=== PATIENT | female | born 1975 | race Caucasian/White ===

== ENCOUNTER 2016-12-29 23:13 | Emergency (ER) | payer SELFPAY ==
[2016-12-29 23:26] VITALS: BP 135/93
[2016-12-30] MEDS ORDERED: Diphtheria,Pertussis(Acell),Tetanus Vaccine 0.5 ML SDV IM ONE (00:13)
--- NOTE | 2016-12-30 00:17 | EDM.PDOC ---
ED HPI GENERAL MEDICAL PROBLEM - General Chief Complaint: Laceration Stated Complaint: RIGHT MIDDLE FINGER CUT Time Seen by Provider: 12/29/16 23:26 Source of Information: Reports: Patient, RN Notes Reviewed History Limitations: Reports: No Limitations - History of Present Illness INITIAL COMMENTS - FREE TEXT/NARRATIVE: The patient states that she was compressing the trash with her right hand, when she cut her right middle finger with something sharp in the trash. She presents with a laceration to the ulnar aspect of her distal phalanx. She states that the wound bled for about 2 hours, although has since stopped. The patient does not recall when her last tetanus vaccination was. The patient does not have a PCP. - Related Data Allergies Allergy/AdvReac Type Severity Reaction Status Date / Time aspirin Allergy Nausea and Verified 12/29/16 23:27 Vomiting codeine Allergy Nausea and Verified 12/29/16 23:27 Vomiting lemon Allergy Anaphylactic Verified 12/29/16 23:27 Shock Past Medical History Genitourinary History: Reports: Renal Calculus Musculoskeletal History: Reports: Arthritis Neurological History: Reports: Headaches, Chronic - Past Surgical History HEENT Surgical History: Reports: Oral Surgery ([place] teeth extraction), Tonsillectomy Female Surgical History: Reports: Oophorectomy (left), Tubal Ligation Social & Family History - Family History Family Medical History: Noncontributory - Tobacco Use Smoking Status *Q: Current Some Day Smoker - Alcohol Use Alcohol Use History: Yes Days Per Week of Alcohol Use: 1 Number of Drinks Per Day: 4 Total Drinks Per Week: 4 Alcohol Use Frequency: Socially - Recreational Drug Use Recreational Drug Use: No - Living Situation & Occupation Living situation: Reports: , with Spouse, with Family (3 kids) Occupation: Unemployed ED ROS GENERAL - Review of Systems Review Of Systems: See Below Constitutional: Reports: No Symptoms HEENT: Reports: No Symptoms Respiratory: Reports: No Symptoms Cardiovascular: Reports: No Symptoms Endocrine: Reports: No Symptoms GI/Abdominal: Reports: No Symptoms : Reports: No Symptoms Musculoskeletal: Reports: No Symptoms Skin: Reports: No Symptoms Neurological: Reports: No Symptoms Psychiatric: Reports: No Symptoms Hematologic/Lymphatic: Reports: No Symptoms Immunologic: Reports: No Symptoms ED EXAM, SKIN/RASH Exam: See Below Exam Limited By: No Limitations General Appearance: Alert, WD/WN, No Apparent Distress Extremities: Other (There is an approximately 1.5 cm "L"-shaped laceration to the ulnar aspect of the distal phalanx of the right third finger, lateral to the nail. The wound appears to be clean, and is not currently bleeding. Neurovascular status of the finger is intact.) ED SKIN PROCEDURES - Laceration/Wound Repair Right Finger Lac/Wound length In cm: 1.5 Appearance: Subcutaneous, Irregular, Clean Distal NVT: Neuro & Vascular Intact, No Tendon Injury Skin Prep: Saline Exploration/Debridement/Repair: Wound Explored, In a Bloodless Field, Explored to Base, No Foreign Material Found, Wound Margins Revised Closed with: Dermabond Sterile Dressing Applied: None Tetanus Status Addressed: Yes Complications: No Course - Vital Signs Last Recorded V/S: Last Vital Signs Temp 36.0 C 12/29/16 23:23 Pulse 118 H 12/29/16 23:23 Resp 16 12/29/16 23:23 BP 135/93 H 12/29/16 23:23 Pulse Ox 95 12/29/16 23:23 - Orders/Labs/Meds Orders: Active Orders 24 hr Category Date Time Status Vaccines to be Administered [RC] PER UNIT ROUTINE Care 12/30/16 00:13 Active Meds: Medications Discontinued Medications Generic Name Dose Route Start Last Admin Trade Name Freq PRN Reason Stop Dose Admin Diphtheria/Tetanus/Acell Pertussis 0.5 ml 12/30/16 00:13 12/30/16 00:23 Adacel IM 12/30/16 00:14 0.5 ml .ONCE ONE Administration - Re-Assessments/Exams Free Text/Narrative Re-Assessment/Exam: 12/30/16 00:13 After soaking in saline, the wound stopped bleeding on its own. The wound was then closed with Dermabond. The patient will receive a tetanus vaccination prior to discharge. Departure - Departure Time of Disposition: 00:13 Disposition: Home, Self-Care 01 Condition: Good Clinical Impression: Laceration of middle finger of right hand without complication - Discharge Information Instructions: Laceration Care, Adult Referrals: PCP,None [Primary Care Provider] - Forms: ED Department Discharge Additional Instructions: You were seen in the emergency room after cutting your right middle finger. Your wound was closed with Dermabond. You were given a tetanus vaccination. We recommend you do not put a dressing over the Dermabond tonight, however, starting tomorrow, after bathing, we recommend that you apply a Band-Aid each day. Do not pick at the glue - allow it to flake off on its own. Take [id number] Tylenol or ibuprofen as needed for discomfort. If any other problems, please do not hesitate to return to the ER. - My Orders Last 24 Hours: My Active Orders 12/30/16 00:13 Vaccines to be Administered [RC] PER UNIT ROUTINE - Assessment/Plan Last 24 Hours: My Active Orders 12/30/16 00:13 Vaccines to be Administered [RC] PER UNIT ROUTINE
== END 2016-12-30 00:25 | disposition home or self-care (01) ==
LOC: JD.ED 23:13
DX: S61.212A Laceration without foreign body of right middle finger without damage to nail, initial encounter (principal); F17.200 Nicotine dependence, unspecified, uncomplicated; Z23 Encounter for immunization; Z88.6 Allergy status to analgesic agent; Z88.5 Allergy status to narcotic agent; Z91.018 Allergy to other foods; W26.9XXA Contact with unspecified sharp object(s), initial encounter
CPT/HCPCS: 12001; 90471; 90715; 99282-25; 99283-25

== ENCOUNTER 2017-03-14 18:55 | Emergency (ER) | payer BC ==
[2017-03-14 19:29] VITALS: BP 149/103
--- NOTE | 2017-03-14 20:08 | EDM.PDOC ---
ED HPI GENERAL MEDICAL PROBLEM - General Chief Complaint: Upper Extremity Injury/Pain Stated Complaint: FELL & INJURED R SHOULDER Time Seen by Provider: 03/14/17 19:55 Source of Information: Reports: Patient History Limitations: Reports: No Limitations - History of Present Illness INITIAL COMMENTS - FREE TEXT/NARRATIVE: 41-year-old female presents the ED for evaluation of right shoulder pain. She reports on the early hours of March 12 she slipped while getting out of her vehicle landing directly on her right shoulder and right hip. She did not hit her head or lose consciousness. Since time of injury she has had increasing pain in the proximal shoulder and humerus area with inability to afford flex or abduct completely. She is right-hand dominant. Pain is worsened since time of injury. She also had a contusion to her right buttock and hip area but she did not wish this to be examined today. She is walking with a minimal limp. 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 Denies: Activity (Has limited mobility particularly abduction or forward flexion ), Exercise, Lifting, Sick Contact Associated Symptoms: Reports: Other (Contusion right hip and buttock area.) Treatments CLINICAL DIRECTOR: Reports: Acetaminophen, NSAIDS (Motrin.) Right Shoulder Pain Score (Numeric/FACES): 10 - Related Data Allergies Allergy/AdvReac Type Severity Reaction Status Date / Time aspirin Allergy Nausea and Verified 12/29/16 23:27 Vomiting codeine Allergy Nausea and Verified 12/29/16 23:27 Vomiting lemon Allergy Anaphylactic Verified 12/29/16 23:27 Shock Home Meds: Home Meds . [No Known Home Meds] 03/14/17 [History] Past Medical History - Past Health History Medical/Surgical History: Denies Medical/Surgical History Genitourinary History: Reports: Renal Calculus Musculoskeletal History: Reports: Arthritis Neurological History: Reports: Headaches, Chronic - Past Surgical History HEENT Surgical History: Reports: Oral Surgery, Tonsillectomy Female Surgical History: Reports: Oophorectomy, Tubal Ligation Social & Family History - Family History Family Medical History: Noncontributory - Tobacco Use Smoking Status *Q: Current Every Day Smoker Years of Tobacco use: 15 Packs/Tins Daily: 0.2 Used Tobacco, but Quit: Yes Month Tobacco Last Used: 2006 - Caffeine Use Caffeine Use: Reports: Coffee, Energy Drinks, Soda, Tea - Alcohol Use Days Per Week of Alcohol Use: 1 Number of Drinks Per Day: 4 Total Drinks Per Week: 4 - Recreational Drug Use Recreational Drug Use: No - Living Situation & Occupation Living situation: Reports: , with Spouse, with Family (3 kids) Occupation: Unemployed Review of Systems - Review of Systems Review Of Systems: See Below Constitutional: Denies: Chills, Diaphoresis, Weakness, Other Eyes: Reports: No Symptoms Ears: Reports: No Symptoms Nose: Reports: No Symptoms Mouth/Throat: Reports: No Symptoms Respiratory: Reports: No Symptoms Cardiovascular: Reports: No Symptoms GI/Abdominal: Reports: No Symptoms Genitourinary: Reports: No Symptoms Musculoskeletal: Reports: Shoulder Pain, Arm Pain (See history of present illness the history of present illness right side.), Other (Right hip/ buttock pain.) Skin: Reports: No Symptoms Neurological: Reports: No Symptoms Psychiatric: Reports: No Symptoms ED EXAM, GENERAL - Physical Exam Exam: See Below Exam Limited By: No Limitations General Appearance: Alert, WD/WN, Mild Distress Eye Exam: Bilateral Eye: Normal Inspection Neck: Normal Inspection, Supple, Non-Tender, Full Range of Motion. No: Lymphadenopathy (L), Lymphadenopathy (R) Respiratory/Chest: No Respiratory Distress, Lungs Clear, No Accessory Muscle Use , Other Cardiovascular: Normal Peripheral Pulses, Regular Rate, Rhythm, No Edema, No Gallop, No Murmur (No rib or sternal pain.) Extremities: Other (Examination of the right shoulder shows a hematoma over the deltoid muscle and pain over the proximal humerus. She has very limited forward flexion can make it almost to 90 as well as abduction to about 90 with significant pain. Pain over the before meals joint and distal clavicle also appreciated without any obvious bruising or hematoma formation.) Neurological: Alert, Oriented, CN II-XII Intact, Normal Cognition, Other Psychiatric: Normal Affect (Limping gait due to contusion to right hip.), Normal Mood Skin Exam: Warm, Dry, Intact, Normal Color, No Rash Course - Vital Signs Last Recorded V/S: Last Vital Signs Temp 36.2 C 03/14/17 19:28 Pulse 102 H 03/14/17 19:28 Resp 20 03/14/17 19:28 BP 149/103 H 03/14/17 19:28 Pulse Ox 96 03/14/17 19:28 - Orders/Labs/Meds Orders: Active Orders 24 hr Category Date Time Status Humerus Rt [CR] Stat Exams 03/14/17 20:03 Taken Shoulder Comp Rt [CR] Stat Exams 03/14/17 20:04 Taken - Radiology Interpretation Free Text/Narrative:: 41-year-old female presents the ED for evaluation of right shoulder pain. This occurred after she slipped and fell getting out of her vehicle in the wee hours of March 12. With direct blow on the right shoulder. Also contused her right hip and buttock area. Since the time of injury she has very limited range of motion in terms of for flexion or abduction of the shoulder. Pain proximal humerus area. Also pain on before meals joint and distal clavicle on examination. Plan x-ray of the shoulder and humerus to be done. - Re-Assessments/Exams Free Text/Narrative Re-Assessment/Exam: 03/14/17 20:36 x-rays of the right humerus are within normal limits. No fractures identified. X-rays of the right shoulder slight shift slow slight widening of the acromioclavicular joint. Alignment is normal however. This may represent a low-grade strain of the acromio-clavicular joint. Treatment is conservative. May apply heat to the area now one half hour out of every 4 hours. Continue ibuprofen 600 mg every 6 hours or Aleve 2 tablets every 8 hours to relieve pain and inflammation. Just right arm sling for the next 2-3 days until swelling and bruising in the deltoid muscle starts to resolve. Suggest follow-up with your personal care physician in 10 days' time if you are not completely back to normal in terms of range of motion of your shoulder. Expect about 14 days to get back to normal. 03/14/17 20:46 due to limited rate range of motion decision made to place her in a sling to support her right arm for the next 3 days until swelling goes down in the deltoid and she begins active range of motion exercises again. Advise follow-up with her personal care physician in 10-14 days time. Departure - Departure Time of Disposition: 20:47 Disposition: Home, Self-Care 01 Condition: Fair Clinical Impression: Contusion of right shoulder Qualifiers: Encounter type: initial encounter Qualified Code(s): S40.011A - Contusion of right shoulder, initial encounter Strain of acromioclavicular joint Qualifiers: Encounter type: initial encounter Laterality: right Qualified Code(s): S46.911A - Strain of unspecified muscle, fascia and tendon at shoulder and upper arm level, right arm, initial encounter - Discharge Information Referrals: PCP,None [Primary Care Provider] - Forms: ED Department Discharge Additional Instructions: Evaluation the emergency room today in regards to recent slip and fall with direct blow to her right shoulder. This is resulted in contusion to the right shoulder with hematoma palpable in the deltoid muscle of the upper arm. X-rays of the upper arm and the shoulder do not reveal any broken bones. I suspect there is a grade 1 strain of the acromioclavicular joint as is slightly widened on x-ray. Us injury will heal on its own over the next 10-14 days. Suggest heat to the area one half hour out of every 4 hours to relieve pain and help the blood in the muscle reabsorb. Suggest right arm sling for the next 3 days until the pain and swelling starts to dissipate. Follow-up with personal physician if you're not completely back to normal in 14 days time. - My Orders Last 24 Hours: My Active Orders 03/14/17 20:03 Humerus Rt [CR] Stat 03/14/17 20:04 Shoulder Comp Rt [CR] Stat - Assessment/Plan Last 24 Hours: My Active Orders 03/14/17 20:03 Humerus Rt [CR] Stat 03/14/17 20:04 Shoulder Comp Rt [CR] Stat
--- NOTE | 2017-03-15 10:57 | CR ---
Right shoulder: Three views of the right shoulder were obtained. Comparison: No prior study. Glenohumeral joint and acromioclavicular joint appear unremarkable. No fracture or other bony abnormality is seen. Impression: 1. No abnormality is identified on three-view right shoulder study. Diagnostic code #1
--- NOTE | 2017-03-15 10:57 | CR ---
Right humerus: Two views of the right humerus were obtained. Comparison: No previous study. No fracture or other abnormality is seen. Impression: 1. No abnormality is identified on two-view right humerus study. Diagnostic code #1
== END 2017-03-14 21:15 | disposition home or self-care (01) ==
LOC: JD.ED 18:55
DX: S46.911A Strain of unspecified muscle, fascia and tendon at shoulder and upper arm level, right arm, initial encounter (principal); S40.011A Contusion of right shoulder, initial encounter; W01.198A Fall on same level from slipping, tripping and stumbling with subsequent striking against other object, initial encounter; F17.210 Nicotine dependence, cigarettes, uncomplicated; Z88.5 Allergy status to narcotic agent; Z88.6 Allergy status to analgesic agent; Z91.018 Allergy to other foods
CPT/HCPCS: 73030-26-RT; 73030-RT; 73060-26-RT; 73060-RT; 99283

== ENCOUNTER 2017-10-31 20:10 | Emergency (ER) | payer BC ==
[2017-10-31 20:20] VITALS: BP 142/117
[2017-10-31] MEDS ORDERED: Acetaminophen/HYDROcodone 325-5 MG Tab PO ONE (20:50)
--- NOTE | 2017-10-31 20:53 | EDM.PDOC ---
ED HPI GENERAL MEDICAL PROBLEM - General Chief Complaint: Lower Extremity Injury/Pain Stated Complaint: LEFT ANKLE INJURY Time Seen by Provider: 10/31/17 20:31 Source of Information: Reports: Patient History Limitations: Reports: No Limitations - History of Present Illness INITIAL COMMENTS - FREE TEXT/NARRATIVE: Patient is a 42-year-old female presents ED complaining of left lateral ankle pain. Patient was home and stepped on a partially cooked hamburger twisting her ankle. Patient felt a pop and was unable to weight-bear thereafter. Swollen and pain is located to the lateral aspect of the ankle. No sensory changes distally. No pain proximally along the fibula. No other complaints. Left Ankle Pain Score (Numeric/FACES): 10 - Related Data Allergies Allergy/AdvReac Type Severity Reaction Status Date / Time aspirin Allergy Nausea and Verified 10/31/17 20:17 Vomiting codeine Allergy Nausea and Verified 10/31/17 20:17 Vomiting lemon Allergy Anaphylactic Verified 10/31/17 20:17 Shock Home Meds: Home Meds . [No Known Home Meds] 03/14/17 [History] Past Medical History - Past Health History Medical/Surgical History: Denies Medical/Surgical History Genitourinary History: Reports: Renal Calculus [employer] History: Reports: Musculoskeletal History: Reports: Arthritis Neurological History: Reports: Headaches, Chronic - Past Surgical History HEENT Surgical History: Reports: Oral Surgery, Tonsillectomy Female Surgical History: Reports: Oophorectomy, Tubal Ligation Social & Family History - Family History Family Medical History: Noncontributory - Tobacco Use Smoking Status *Q: Never Smoker - Caffeine Use Caffeine Use: Reports: Coffee, Energy Drinks, Soda, Tea - Recreational Drug Use Recreational Drug Use: No - Living Situation & Occupation Living situation: Reports: , with Spouse, with Family (3 kids) Occupation: Unemployed Review of Systems - Review of Systems Review Of Systems: ROS reveals no pertinent complaints other than HPI. ED EXAM, GENERAL - Physical Exam Exam: See Below Exam Limited By: No Limitations General Appearance: Alert, WD/WN, No Apparent Distress Ears: Hearing Grossly Normal Nose: Normal Inspection Throat/Mouth: Normal Voice, No Airway Compromise Neck: Normal Inspection, Supple Respiratory/Chest: No Respiratory Distress, No Accessory Muscle Use Cardiovascular: Normal Peripheral Pulses, Regular Rate, Rhythm Peripheral Pulses: 2+: Posterior Tibial (L) Extremities: Other (Swelling noted to the left lateral ankle with increasing pain on palpation. Limited range of motion secondary to pain. No pain noted to the medial aspect of the ankle. No pain along the metatarsals. No sensory deficits noted. No pain with palpation of the proximal fibula. No pain with palpation of the tibia.) Neurological: Alert, Oriented, CN II-XII Intact, Normal Cognition, No Motor/ Sensory Deficits Psychiatric: Normal Affect, Normal Mood Skin Exam: Warm, Dry, Intact, Normal Color Course - Vital Signs Last Recorded V/S: Last Vital Signs Temp 97.4 F 10/31/17 20:17 Pulse 110 H 10/31/17 20:17 Resp 18 10/31/17 20:17 BP 142/117 H 10/31/17 20:17 Pulse Ox 97 10/31/17 20:17 - Orders/Labs/Meds Orders: Active Orders 24 hr Category Date Time Status Ankle Min 3V Lt [CR] Stat Exams 10/31/17 20:50 Taken Meds: Medications Discontinued Medications Generic Name Dose Route Start Last Admin Trade Name Katherine PRN Reason Stop Dose Admin Hydrocodone Bitart/Acetaminophen 1 tab 10/31/17 20:50 10/31/17 21:00 [place] 325-5 Mg PO 10/31/17 20:51 1 tab ONETIME ONE Administration - Re-Assessments/Exams Free Text/Narrative Re-Assessment/Exam: Ordered x-ray of the left ankle and norco 1 tab by mouth. X-ray of the ankle: Reviewed with Dr. Jones with no acute bony abnormalities noted. Final interpretation is pending. Discharge instructions as documented for left ankle sprain. Crutches and stirrup splint applied. Departure - Departure Time of Disposition: 20:53 Disposition: Home, Self-Care 01 Clinical Impression: Ankle sprain Qualifiers: Encounter type: initial encounter Involved ligament of ankle: unspecified ligament Laterality: left Qualified Code(s): S93.402A - Sprain of unspecified ligament of left ankle, initial encounter - Discharge Information Instructions: Crutch Use, Adult, [id number], How to Use a Stirrup Ankle Brace , Ankle Sprain Referrals: PCP,None [Primary Care Provider] - Forms: ED Department Discharge - My Orders Last 24 Hours: My Active Orders 10/31/17 20:50 Ankle Min 3V Lt [CR] Stat - Assessment/Plan Last 24 Hours: My Active Orders 10/31/17 20:50 Ankle Min 3V Lt [CR] Stat
--- NOTE | 2017-11-05 07:30 | CR ---
Left ankle: Four views of the left ankle were obtained. Comparison: No previous study. Ankle mortise is symmetric. No fracture, dislocation or other bony abnormality is seen. Impression: 1. No abnormality is identified on left ankle exam. Diagnostic code #1
== END 2017-10-31 22:15 | disposition home or self-care (01) ==
LOC: JD.ED 20:10
DX: S93.402A Sprain of unspecified ligament of left ankle, initial encounter (principal); Z88.5 Allergy status to narcotic agent; X50.1XXA Overexertion from prolonged static or awkward postures, initial encounter
CPT/HCPCS: 73610; 99283; A9270

== ENCOUNTER 2017-12-14 17:24 | Emergency (ER) | payer BC ==
[2017-12-14 17:32] VITALS: BP 143/104
[2017-12-14] MEDS ORDERED: Ketorolac 60 MG/2 ML SDV IM ONE (17:33)
--- NOTE | 2017-12-14 17:40 | EDM.PDOC ---
ED HPI GENERAL MEDICAL PROBLEM - General Chief Complaint: Lower Extremity Injury/Pain Stated Complaint: LT ANKLE INJURY Time Seen by Provider: 12/14/17 17:27 - History of Present Illness INITIAL COMMENTS - FREE TEXT/NARRATIVE: Patient is 42-year-old female accompanied by daughter presented today to the emergency department for evaluation of left ankle injury happened approximately half hour prior to arrival. She stated that when she was picking up people from the bar, she accidentally twisted and injured her left ankle. Certainly after the injury, she developed diffuse swelling around her ankle and she has been complaining of pain and unable to fully weight-bearing. Currently she rated her pain level about 8 or 9 on a scale of 0-10. She denies any medication use to alleviate pain prior to arrival. She did admit that he had a injury to the similar ankle which she had sprained couple months ago but denies any fracture. She denies any associated symptoms of numbness or weakness to the left foot, pain to her left knee. Denies any other concerns at this time. Left Ankle Pain Score (Numeric/FACES): 8 - Related Data Allergies Allergy/AdvReac Type Severity Reaction Status Date / Time aspirin Allergy Nausea and Verified 12/14/17 17:33 Vomiting codeine Allergy Nausea and Verified 12/14/17 17:33 Vomiting lemon Allergy Anaphylactic Verified 12/14/17 17:33 Shock Home Meds: Home Meds . 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: Musculoskeletal History: Reports: Arthritis Neurological History: Reports: Headaches, Chronic - Past Surgical History HEENT Surgical History: Reports: Oral Surgery, Tonsillectomy Female Surgical History: Reports: Oophorectomy, Tubal Ligation Social & Family History - Family History Family Medical History: Noncontributory - Tobacco Use Smoking Status *Q: Current Some Day Smoker Years of Tobacco use: 20 Packs/Tins Daily: 0.1 - Caffeine Use Caffeine Use: Reports: Coffee, Soda - Recreational Drug Use Recreational Drug Use: No - Living Situation & Occupation Living situation: Reports: , with Spouse, with Family (3 kids) Occupation: Unemployed Review of Systems - Review of Systems Review Of Systems: ROS reveals no pertinent complaints other than HPI. ED EXAM, GENERAL - Physical Exam Exam: See Below Exam Limited By: No Limitations General Appearance: Alert, WD/WN, No Apparent Distress Respiratory/Chest: No Respiratory Distress, Lungs Clear, Normal Breath Sounds Cardiovascular: Normal Peripheral Pulses, Regular Rate, Rhythm Peripheral Pulses: 2+: Posterior Tibial (L), Dorsalis Pedis (L) Back Exam: Normal Inspection, Full Range of Motion, NT Extremities: Normal Inspection, Normal Range of Motion, Normal Capillary Refill , Other (Left ankle/foot: There is no ecchymosis, crepitus. Diffuse swelling and tenderness to palpation over the bony prominence of malleolus. No erythema or warmth.Distal motor and neurovascular status intact.) Neurological: Alert, Oriented, No Motor/Sensory Deficits Psychiatric: Normal Affect, Normal Mood Skin Exam: Warm, Dry, Intact, Normal Color, No Rash Course - Vital Signs Last Recorded V/S: Last Vital Signs Temp 35.7 C 12/14/17 17:29 Pulse 110 H 12/14/17 17:29 Resp 16 12/14/17 17:29 BP 143/104 H 12/14/17 17:29 Pulse Ox 98 12/14/17 17:29 - Orders/Labs/Meds Orders: Active Orders 24 hr Category Date Time Status Ankle 2V Lt [CR] Stat Exams 12/14/17 17:32 Taken Foot 2V Lt [CR] Stat Exams 12/14/17 17:32 Taken Meds: Medications Discontinued Medications Generic Name Dose Route Start Last Admin Trade Name Texq PRN Reason Stop Dose Admin Ketorolac Tromethamine 60 mg 12/14/17 17:33 12/14/17 17:38 Toradol IM 12/14/17 17:34 60 mg ONETIME ONE Administration - Re-Assessments/Exams Free Text/Narrative Re-Assessment/Exam: 12/14/17 18:05 This time patient reevaluated at bedside.Patient was given ice pack to the left ankle and elevated that extremity, in conjunction with intramuscular Toradol injection which helped her alleviated somewhat of her discomfort. Currently she rated her discomfort level about 2-3 on a scale of 0-10. In the emergency department, will provide Noe wrap to the left ankle. She stated that she does have a crutches at home which she will use. I advised her to keep her left lower extremity elevated while resting, Noe wrap , icing, and use of NSAID as needed for pain control. Her to follow-up with orthopedic surgery, as mentioned in the discharge instruction within 5-7 days to reevaluate of ankle injury. She verbalized understanding of the given instructions and agrees to comply. Departure - Departure Time of Disposition: 18:12 Disposition: Home, Self-Care 01 Condition: Good Clinical Impression: Left ankle sprain - Discharge Information *PRESCRIPTION DRUG MONITORING PROGRAM REVIEWED*: Not Applicable *COPY OF PRESCRIPTION DRUG MONITORING REPORT IN PATIENT TALIB: Not Applicable Instructions: Ankle Sprain, [id number] Referrals: PCP,None [Primary Care Provider] - 3 Days (Please establish care with primary care provider) Darian Wesley MD [Physician] - 1 Week (Outpatient orthopedic surgery referral and follow-up and reevaluation of today emergency visit LEFT ankle sprain within 5-7 days) Forms: ED Department Discharge - My Orders Last 24 Hours: My Active Orders 12/14/17 17:32 Ankle 2V Lt [CR] Stat Foot 2V Lt [CR] Stat - Assessment/Plan Last 24 Hours: My Active Orders 12/14/17 17:32 Ankle 2V Lt [CR] Stat Foot 2V Lt [CR] Stat
--- NOTE | 2017-12-17 08:19 | CR ---
Left ankle: Two views of the left ankle were obtained. Comparison: No prior ankle study. Soft tissue swelling is identified. Ankle mortise is symmetric. No discrete bony abnormality is seen on this two-view study. Impression: 1. Soft tissue swelling. No bony abnormality is appreciated. Diagnostic code #2
--- NOTE | 2017-12-17 08:46 | CR ---
Left foot: Two views of the left foot were obtained. Comparison: No prior left foot exam. Joint spaces are preserved. No fracture or other bony abnormality is seen. No soft tissue radiopaque foreign body is appreciated. Impression: 1. No abnormality is appreciated on two-view left foot exam. Diagnostic code #1
== END 2017-12-14 18:15 | disposition home or self-care (01) ==
LOC: JD.ED 17:24
DX: S93.402A Sprain of unspecified ligament of left ankle, initial encounter (principal); F17.210 Nicotine dependence, cigarettes, uncomplicated; Z88.8 Allergy status to other drugs, medicaments and biological substances; X50.9XXA Other and unspecified overexertion or strenuous movements or postures, initial encounter
CPT/HCPCS: 73600; 73620; 96372; 99283; J1885

== ENCOUNTER 2018-03-30 20:41 | Emergency (ER) | payer SELFPAY ==
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
[2018-03-30] MEDS ORDERED: Ibuprofen 400 MG Tab PO STA (22:25)
[2018-03-30 22:50] VITALS: BP 137/86
== END 2018-03-30 22:45 | disposition home or self-care (01) ==
LOC: JD.ED 20:41
DX: F43.0 Acute stress reaction (principal); F17.210 Nicotine dependence, cigarettes, uncomplicated; Z88.5 Allergy status to narcotic agent; Z88.8 Allergy status to other drugs, medicaments and biological substances; Z91.018 Allergy to other foods
CPT/HCPCS: 36415; 80053; 80306; 81001; 84703; 85025; 99283; A9270

== ENCOUNTER 2018-08-22 10:34 | Emergency (ER) | payer SELFPAY ==
[2018-08-22] MEDS ORDERED: Sodium Chloride 0.9% 10 ML Syringe FLUSH PRN (11:56)
[2018-08-22] MEDS: Ondansetron 4 MG/2 ML SDV IVPUSH ONE (12:15)
[2018-08-22] MEDS: HYDROmorphone 0.5 MG/0.5 ML Syringe IVPUSH ONE (12:17)
[2018-08-22] MEDS: Lidocaine 1% 30 ML SDV INJECT STA (12:30)
--- NOTE | 2018-08-22 12:37 | EDM.PDOC ---
ED HPI GENERAL MEDICAL PROBLEM - General Chief Complaint: Skin Complaint Stated Complaint: SKIN COMPLAINT Time Seen by Provider: 08/22/18 11:00 Source of Information: Reports: Patient History Limitations: Reports: No Limitations - History of Present Illness INITIAL COMMENTS - FREE TEXT/NARRATIVE: 43-year-old female presents for evaluation and treatment of an abscess to the right axilla. Patient reports she's had this for approximately 3 days. States his very tender to touch. She has attempted to squeeze and express material from above has been unsuccessful. She states it is very tender to touch, warm and red. She reports associated symptoms of nausea, subjective fever, chills and a decreased appetite. She has had these in the past. No history of diabetes. No primary care provider. Duration: Day(s): (3) Location: Reports: Upper Extremity, Right Right Arm Pain Score (Numeric/FACES): 5 - Related Data Allergies Allergy/AdvReac Type Severity Reaction Status Date / Time aspirin Allergy Nausea and Verified 08/22/18 11:01 Vomiting codeine Allergy Nausea and Verified 08/22/18 11:01 Vomiting lemon Allergy Anaphylactic Verified 08/22/18 11:01 Shock Home Meds: Home Meds Ondansetron [Zofran ODT] 4 mg PO Q6H PRN #15 tab.dis 08/22/18 [Rx] Sulfamethoxazole/Trimethoprim [Bactrim Ds Tablet] 1 each PO BID #20 tablet 08/22 [Rx] traMADol [Ultram] 50 mg PO Q6H PRN #15 tab 08/22/18 [Rx] Past Medical History - Past Health History Medical/Surgical History: Denies Medical/Surgical History Genitourinary History: Reports: Renal Calculus 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: Musculoskeletal History: Reports: Arthritis Neurological History: Reports: Headaches, Chronic - Past Surgical History HEENT Surgical History: Reports: Oral Surgery, Tonsillectomy Female Surgical History: Reports: Oophorectomy, Tubal Ligation Social & Family History - Family History Family Medical History: Noncontributory - Tobacco Use Smoking Status *Q: Never Smoker - Caffeine Use Caffeine Use: Reports: None - Living Situation & Occupation Living situation: Reports: , with Spouse, with Family (3 kids) Occupation: Unemployed ED ROS GENERAL - Review of Systems Review Of Systems: See Below Constitutional: Reports: Fever (subjective), Chills, Decreased Appetite GI/Abdominal: Reports: Nausea. Denies: Vomiting Skin: Reports: Lumps (right axilla, denies any purulent drainage. Very tender to palpation.) ED EXAM, SKIN/RASH Exam: See Below Exam Limited By: No Limitations General Appearance: Alert, WD/WN, Mild Distress, Obese Respiratory/Chest: No Respiratory Distress, Lungs Clear, Normal Breath Sounds Cardiovascular: Normal Peripheral Pulses, Regular Rate, Rhythm, No Murmur Neurological: Alert, Oriented, Normal Cognition Psychiatric: Normal Affect, Normal Mood Skin: Warm, Dry, Normal Color. No: Erythema Location, Skin: Upper Extremity, Right (lumbar, cellular picture than a golf ball, appreciated the right axilla. No purulent drainage. Minimal overlying erythema. Very tender to palpation.) Course - Vital Signs Last Recorded V/S: Last Vital Signs Temp 98.1 F 08/22/18 13:37 Pulse 90 08/22/18 13:37 Resp 16 08/22/18 13:37 BP Pulse Ox 97 08/22/18 13:37 - Orders/Labs/Meds Orders: Active Orders 24 hr Category Date Time Status Peripheral IV Care [RC] . DIRECTED Care 08/22/18 11:56 Active CULTURE ANAEROBIC + SMEAR [RM] Stat Lab 08/22/18 12:24 Received Peripheral IV Insertion Adult [OM.PC] Routine Oth 08/22/18 11:56 Ordered Meds: Medications Discontinued Medications Generic Name Dose Route Start Last Admin Trade Name Katherine PRN Reason Stop Dose Admin Bupivacaine HCl Confirm 08/22/18 12:08 08/22/18 13:21 Sensorcaine-Mpf 0.5% Administered 08/22/18 12:09 Not Given Dose 10 ml .ROUTE .STK-MED ONE Hydromorphone HCl 0.5 mg 08/22/18 11:56 08/22/18 12:17 Dilaudid IVPUSH 08/22/18 11:57 0.5 mg ONETIME ONE Administration Ceftriaxone Sodium 2 gm/ 100 mls @ 200 mls/hr 08/22/18 12:46 08/22/18 13:01 Sodium Chloride IV 08/22/18 13:15 200 mls/hr NOW ONE Administration Lidocaine HCl Confirm 08/22/18 12:08 08/22/18 13:40 Xylocaine-Mpf 1% Administered 08/22/18 12:09 Not Given Dose 30 ml .ROUTE .STK-MED ONE Lidocaine HCl 30 ml 08/22/18 12:15 08/22/18 12:30 Xylocaine-Mpf 1% INJECT 08/22/18 12:16 30 ml ONETIME STA Administration Ondansetron HCl 4 mg 08/22/18 11:56 08/22/18 12:15 Zofran IVPUSH 08/22/18 11:57 4 mg ONETIME ONE Administration Sodium Chloride 10 ml 08/22/18 11:56 Saline Flush FLUSH ASDIRECTED PRN Keep Vein Open Trimethoprim/Sulfamethoxazole 1 tab 08/22/18 12:43 08/22/18 13:02 Septra Ds PO 08/22/18 12:44 1 tab ONETIME ONE Administration - Re-Assessments/Exams Free Text/Narrative Re-Assessment/Exam: 08/22/18 12:57 Dr. Clement, surgeon on-call presented to the ER and opened up the abscess. Did not express much material is felt mostly be swelling. He does feel that this is MRSA. This was packed and he recommends daily dressing changes and follow-up with him. I will give her some Rocephin here in the ED and some Bactrim and start her on a course of Bactrim. She is to follow-up in the clinic. Aerobic and anaerobic cultures are pending at this time. Discharge instructions as documented. Departure - Departure Time of Disposition: 12:59 Disposition: Home, Self-Care 01 Condition: Fair Clinical Impression: Cellulitis Qualifiers: Site of cellulitis: extremity Site of cellulitis of extremity: lower extremity Laterality: right Qualified Code(s): L03.115 - Cellulitis of right lower limb - Discharge Information *PRESCRIPTION DRUG MONITORING PROGRAM REVIEWED*: No *COPY OF PRESCRIPTION DRUG MONITORING REPORT IN PATIENT TALIB: No Prescriptions: Ondansetron [Zofran ODT] 4 mg PO Q6H PRN #15 tab.dis PRN Reason: Nausea Sulfamethoxazole/Trimethoprim [Bactrim Ds Tablet] 1 each PO BID #20 tablet traMADol [Ultram] 50 mg PO Q6H PRN #15 tab PRN Reason: Pain Instructions: Cellulitis, Adult, [id number] Referrals: PCP,None [Primary Care Provider] - Forms: ED Department Discharge Additional Instructions: You were given medication in the ER that can affect your ability to drive and operate machinery. Do not drive or operate machinery within 10 hours of taking prescription narcotic pain medication. Utilize hot packs to the area. Follow-up with Dr. Narayanan Sunday in the clinic. Call [phone] to schedule with him. Have the dressing and packing changed daily, the ER can do this for you when you are not seen in the clinic. OTC Tylenol or Motrin as needed for pain. tramadol 1 tab PO every every 6 hours prn pain. Zofran 1 tab sublingual every 6 hours prn nausea. Bactrim as prescribed. 1 tab PO bid x 10 days. Please return to the ER should your symptoms change or worsen. - My Orders Last 24 Hours: My Active Orders 08/22/18 11:56 Peripheral IV Care [RC] . DIRECTED Peripheral IV Insertion Adult [OM.PC] Routine 08/22/18 12:24 CULTURE ANAEROBIC + SMEAR [RM] Stat - Assessment/Plan Last 24 Hours: My Active Orders 08/22/18 11:56 Peripheral IV Care [RC] . DIRECTED Peripheral IV Insertion Adult [OM.PC] Routine 08/22/18 12:24 CULTURE ANAEROBIC + SMEAR [RM] Stat
[2018-08-22] MEDS: cefTRIAXone 2 GM in Sodium Chloride 0.9% 100 ML IV ONE (13:01)
[2018-08-22] MEDS: Sulfamethoxazole/Trimethoprim 800-160 MG Tab PO ONE (13:02)
[2018-08-22] MEDS: Bupivacaine 0.5% 10 ML SDV ONE (13:21)
[2018-08-22] MEDS: Lidocaine 1% 30 ML SDV ONE (13:40)
--- NOTE | 2018-08-23 08:02 | PROC ---
DATE OF OPERATION: 08/22/2018 SURGEON: Des Narayanan MD PREOPERATIVE DIAGNOSIS: Abscess, right axilla. POSTOPERATIVE DIAGNOSIS: Abscess, right axilla. OPERATION PERFORMED: Incision and drainage. ANESTHESIA: Under local anesthetic, 1% Xylocaine. INDICATIONS: The patient presented to the ER with pain and swelling in the left axilla with redness and tenderness and small drainage. I was asked by Emergency Room to drain the abscess. DESCRIPTION OF PROCEDURE: The patient after gowning and gloving and prepping the area with Betadine, 1% Xylocaine was instilled around the area. An incision was made and carried down through the skin into the subcuticular tissue. A small amount of pus was obtained, and this was cultured. Palpation of the area did not show anything, but indurated, inflamed, and infected fat and little pus. Recommendation was to pack the wound daily and warm packs and start on antibiotics directed against MRSA and follow up in my clinic in a week and daily packing in the emergency room. If not improved, return to the ER. ESTIMATED BLOOD LOSS: MMODAL /[id number]
== END 2018-08-22 13:35 | disposition home or self-care (01) ==
LOC: JD.ED 10:34
DX: L02.411 Cutaneous abscess of right axilla (principal); L03.115 Cellulitis of right lower limb; Z88.8 Allergy status to other drugs, medicaments and biological substances; Z88.5 Allergy status to narcotic agent; Z91.048 Other nonmedicinal substance allergy status
CPT/HCPCS: 10060; 10061; 87075; 87077; 87186; 87205; 96365; 96375; 99284; 99284-25; A9270-GY; J0696; J1170; J2001; J2405; J7030

== ENCOUNTER 2019-02-03 10:49 | Emergency (ER) | payer SELFPAY ==
[2019-02-03 11:09] VITALS: BP 145/101; PULSE 100
--- NOTE | 2019-02-03 11:32 | EDM.PDOC ---
ED HPI GENERAL MEDICAL PROBLEM - General Chief Complaint: Bite:Animal, Insect Stated Complaint: INSECT BITE Time Seen by Provider: 02/03/19 11:31 - History of Present Illness INITIAL COMMENTS - FREE TEXT/NARRATIVE: 43-year-old female presents emergency room after getting stung by a spider she thinks. Patient awoke this morning with the painful area on the right side of her face just in front of her ear. Patient states she has little black spiders in her house but did not actually see a spider. The patient is noticed increased discomfort and swelling in the area no drainage. The patient did try and take Benadryl 25 mg. If she takes more than that it knocks her out. The patient's last tetanus shot was in December 2016. Right Cheek Pain Score (Numeric/FACES): 8 - Related Data Allergies Allergy/AdvReac Type Severity Reaction Status Date / Time aspirin Allergy Nausea and Verified 02/03/19 11:06 Vomiting codeine Allergy Nausea and Verified 02/03/19 11:06 Vomiting lemon Allergy Anaphylactic Verified 02/03/19 11:06 Shock Home Meds: Home Meds Sulfamethoxazole/Trimethoprim [Bactrim Ds Tablet] 1 each PO Q12H #14 tablet [Rx] Past Medical History - Past Health History Medical/Surgical History: Denies Medical/Surgical History Genitourinary History: Reports: Renal Calculus [employer] History: Reports: Musculoskeletal History: Reports: Arthritis Neurological History: Reports: Headaches, Chronic - Infectious Disease History Infectious Disease History: Reports: MRSA - Past Surgical History HEENT Surgical History: Reports: Oral Surgery, Tonsillectomy Female Surgical History: Reports: Oophorectomy, Tubal Ligation Social & Family History - Family History Family Medical History: Noncontributory - Tobacco Use Smoking Status *Q: Unknown Ever Smoked - Caffeine Use Caffeine Use: Reports: Coffee, Energy Drinks, Soda, Tea - Living Situation & Occupation Living situation: Reports: , with Spouse, with Family (3 kids) Occupation: Unemployed ED ROS GENERAL - Review of Systems Review Of Systems: See Below Constitutional: Reports: No Symptoms Respiratory: Reports: No Symptoms Cardiovascular: Reports: No Symptoms GI/Abdominal: Reports: No Symptoms Skin: Reports: Other (See history of present illness) Neurological: Reports: No Symptoms ED EXAM, ANIMAL BITE - Physical Exam Exam: See Below Exam Limited By: No Limitations General Appearance: Alert, No Apparent Distress Ears: Normal External Exam, Normal Canal, Hearing Grossly Normal, Normal TMs Nose: Normal Inspection, Normal Mucosa, No Blood Throat/Mouth: Normal Inspection, Normal Lips, Normal Teeth, Normal Gums, Normal Oropharynx, Normal Voice, No Airway Compromise, Other (Painful teeth on the right side of her face no stones seen in Stensen's duct) Head: Facial Swelling (Right side in front of her ear about 3 cm. She has a raised area nonfluctuant no clear bite or sting sites seen. This area is about 3 mm circular with a surrounding erythema and warmth that varies from 1-2 cm around the central area) Neck: Normal Inspection, Supple, Non-Tender, Full Range of Motion. No: Lymphadenopathy (L), Lymphadenopathy (R) Respiratory/Chest: No Respiratory Distress, Lungs Clear, Normal Breath Sounds Cardiovascular: Normal Peripheral Pulses, Regular Rate, Rhythm, No Edema Course - Vital Signs Last Recorded V/S: Last Vital Signs Temp 36.7 C 02/03/19 11:07 Pulse 100 02/03/19 11:07 Resp 18 02/03/19 11:07 BP 145/101 H 02/03/19 11:07 Pulse Ox 100 02/03/19 11:07 - Orders/Labs/Meds Orders: Active Orders 24 hr Category Date Time Status Famotidine [Pepcid] Med 02/03/19 11:41 Once 20 mg PO ONETIME ONE Meds: Medications Discontinued Medications Generic Name Dose Route Start Last Admin Trade Name Freq PRN Reason Stop Dose Admin Famotidine 20 mg 02/03/19 11:41 Pepcid PO 02/03/19 11:42 ONETIME ONE - Re-Assessments/Exams Free Text/Narrative Re-Assessment/Exam: 02/03/19 11:49 Is unclear to me if the patient is developing a superficial abscess versus a true insect bite or sting. We'll start her on Pepcid use Benadryl when necessary continue icing the area and start on Bactrim Departure - Departure Time of Disposition: 11:50 Disposition: Home, Self-Care 01 Clinical Impression: Insect bite - Discharge Information Prescriptions: Sulfamethoxazole/Trimethoprim [Bactrim Ds Tablet] 1 each PO Q12H #14 tablet Referrals: PCP,None [Primary Care Provider] - Forms: ED Department Discharge Additional Instructions: Return to the emergency room with any questions problems worsening symptoms. Take the antibiotics as directed. As we discussed picked up some famotidine, this is the generic for Pepcid, take one twice daily. This is [id number]. Use Benadryl 25 mg every 6 hours as needed. Follow-up in the Hospital clinic in 2 days for recheck [phone] - My Orders Last 24 Hours: My Active Orders 02/03/19 11:41 Famotidine [Pepcid] 20 mg PO ONETIME ONE - Assessment/Plan Last 24 Hours: My Active Orders 02/03/19 11:41 Famotidine [Pepcid] 20 mg PO ONETIME ONE
[2019-02-03] MEDS ORDERED: Famotidine 20 MG Tab PO ONE (11:41)
== END 2019-02-03 12:11 | disposition home or self-care (01) ==
LOC: JD.ED 10:49
DX: S00.86XA Insect bite (nonvenomous) of other part of head, initial encounter (principal); Z88.6 Allergy status to analgesic agent; Z88.5 Allergy status to narcotic agent; Z91.018 Allergy to other foods; W57.XXXA Bitten or stung by nonvenomous insect and other nonvenomous arthropods, initial encounter
CPT/HCPCS: 99283; A9270; 99282

== ENCOUNTER 2019-05-04 14:07 | Emergency (ER) | payer SELFPAY ==
[2019-05-04 14:19] VITALS: PULSE 98
[2019-05-04] MEDS ORDERED: Ketorolac 60 MG/2 ML SDV IM ONE (14:42)
--- NOTE | 2019-05-04 14:50 | EDM.PDOC ---
ED HPI GENERAL MEDICAL PROBLEM - General Chief Complaint: Fever Stated Complaint: FEVER X 3 DAYS AND SORE THROAT Time Seen by Provider: 05/04/19 14:15 Source of Information: Reports: Patient, RN Notes Reviewed History Limitations: Reports: No Limitations - History of Present Illness INITIAL COMMENTS - FREE TEXT/NARRATIVE: Patient is a 43-year-old female who presents to the ED for evaluation of a fever and a sore throat. Patient notes that this is been present since Sunday. She states that her grandson was recently diagnosed with strep throat, she developed symptoms shortly after exposure to him when he got the diagnosis. Patient states that she has felt feverish all weekend, but does not have a thermometer to check her temperature at home. She has been taking 60 mg ibuprofen every 4-6 hours, seems to help with the headache and also with the fevers, but they come straight back again when the medicine is more off. She is more fatigued than she normally is. She did develop a slight cough today as well. Patient's not having any nausea/vomiting/diarrhea. She states she is not a smoker, nor she a drinker, but she does smoke a little bit of weed from time to time. She also states there are 2 areas on her back, that she believes to be spider bites and are wondering if they are not infected. The one on the right shoulder blade is a little bit more tender than the one on the left shoulder blade. She has been using topical antibiotic ointment and a Band-Aid for these. Headache Pain Score (Numeric/FACES): 8 - Related Data Allergies Allergy/AdvReac Type Severity Reaction Status Date / Time aspirin Allergy Nausea and Verified 05/04/19 14:20 Vomiting codeine Allergy Nausea and Verified 05/04/19 14:20 Vomiting lemon Allergy Anaphylactic Verified 05/04/19 14:20 Shock spider venom Allergy Other Verified 05/04/19 14:20 Home Meds: Home Meds . [No Known Home Meds] 05/04/19 [History] Past Medical History Genitourinary History: Reports: Renal Calculus [employer] ASSIST History: Reports: Musculoskeletal History: Reports: Arthritis Neurological History: Reports: Headaches, Chronic - Infectious Disease History Infectious Disease History: Reports: Chicken Pox, Hepatitis B, MRSA - Past Surgical History HEENT Surgical History: Reports: Oral Surgery, Tonsillectomy Female Surgical History: Reports: Oophorectomy, Tubal Ligation Social & Family History - Family History Family Medical History: Noncontributory - Tobacco Use Smoking Status *Q: Former Smoker Used Tobacco, but Quit: Yes Month/Year Tobacco Last Used: 2004 - Caffeine Use Caffeine Use: Reports: Coffee, Energy Drinks, Soda, Tea - Recreational Drug Use Recreational Drug Use: Yes Recreational Drug Type: Reports: Marijuana/Hashish Recreational Drug Use Frequency: Socially - Living Situation & Occupation Living situation: Reports: , with Spouse, with Family (3 kids) Occupation: Unemployed ED ROS ENT - Review of Systems Review Of Systems: See Below Constitutional: Reports: Fever, Chills, Malaise, Decreased Appetite HEENT: Reports: Throat Pain. Denies: Ear Pain Respiratory: Reports: Cough. Denies: Shortness of Breath Cardiovascular: Denies: Chest Pain GI/Abdominal: Denies: Abdominal Pain, Constipation, Diarrhea, Nausea, Vomiting Neurological: Reports: Headache ED EXAM, ENT - Physical Exam Exam: See Below Exam Limited By: No Limitations General Appearance: Alert, WD/WN, No Apparent Distress Eye Exam: Bilateral Eye: EOMI, Normal Inspection, PERRL Nose: Normal Inspection Mouth/Throat: Normal Inspection, Normal Gums, Normal Lips, Normal Teeth, Pharyngeal Erythema. No: Uvular Deviation, Uvular Edema Head: Atraumatic, Normocephalic Neck: Normal Inspection Respiratory/Chest: No Respiratory Distress, Lungs Clear, Normal Breath Sounds, No Accessory Muscle Use, Chest Non-Tender Cardiovascular: Normal Peripheral Pulses, Regular Rate, Rhythm, No Murmur Extremities: Normal Inspection, Normal Capillary Refill Neurological: Alert, Oriented, Normal Cognition, No Motor/Sensory Deficits Psychiatric: Normal Affect, Normal Mood Skin: Warm, Dry, Intact, Normal Color, No Rash, Other (2 lesions on patient's back. #1: Right scapula. This is an area that measures roughly 2 x 2 cm, no fluctuance, there is a scab noted in the middle of the lesion. Mild erythema surrounding. #2: Left scapula, roughly 1 x 1 cm, no fluctuance, scab in center. Mild erythema noted around it) Course - Vital Signs Last Recorded V/S: Last Vital Signs Temp 97.9 F 05/04/19 14:17 Pulse 98 05/04/19 14:17 Resp 19 05/04/19 14:17 BP 131/87 05/04/19 14:17 Pulse Ox 98 05/04/19 14:17 - Orders/Labs/Meds Orders: Active Orders 24 hr Category Date Time Status INFLUENZA A+B AG SCREEN [RM] Stat Lab 05/04/19 14:21 Ordered Meds: Medications Discontinued Medications Generic Name Dose Route Start Last Admin Trade Name Katherine PRN Reason Stop Dose Admin Ketorolac Tromethamine 60 mg 05/04/19 14:42 05/04/19 14:48 Toradol IM 05/04/19 14:43 60 mg ONETIME ONE Administration Penicillin G Benzathine 1.2 millunits 05/04/19 15:14 Bicillin L-A IM 05/04/19 15:15 ONETIME ONE - Re-Assessments/Exams Free Text/Narrative Re-Assessment/Exam: 05/04/19 14:56 Patient presents to the ED for evaluation of a fever and a sore throat. I did order an influenza swab and a strep swab at the initial time of exam, and I did order 60 mg IM Toradol for further management. 05/04/19 15:19 Patient's strep screen was positive at this time. Influenza screen is still pending however will not cell changer much as it is been 3 days already since beginning of her symptoms if she would be positive. She would only need to take Tylenol ibuprofen for management. Patient does want to the injection of penicillin at today's visit for management of the strep throat. Departure - Departure Time of Disposition: 15:15 Disposition: Home, Self-Care 01 Condition: Fair Clinical Impression: Strep throat - Discharge Information *PRESCRIPTION DRUG MONITORING PROGRAM REVIEWED*: No *COPY OF PRESCRIPTION DRUG MONITORING REPORT IN PATIENT TALIB: No Instructions: Strep Throat, [id number] Referrals: PCP,None [Primary Care Provider] - Forms: ED Department Discharge Additional Instructions: You were evaluated in the ER today regarding your fever and sore throat. Your strep screen was positive at today's visit, and you did receive a one-time injection of penicillin for this. You should not need further antibiotic treatment. Your influenza screen demonstrated is still pending, but it will not cell changer much. It is still a viral illness and you will need to treated as such. Recommend you stick to clear liquids or soft diet over the next few days while your throat is still sore. Please take 500 mg Tylenol or 6 mg ibuprofen every 6 hours for further pain relief. Do not exceed 4000 mg of Tylenol or 3 to her milligrams of ibuprofen in a 24-hour time span. As for the lesions on your back, please keep using topical antibiotic ointment to these areas, you may also try hot packs to the area to see if this does not help relieve some of the infection. Please return to the ER if your symptoms change or worsen. Sepsis Event Note - Evaluation Sepsis Screening Result: No Definite Risk - Focused Exam Vital Signs: Vital Signs Temp Pulse Resp BP Pulse Ox 05/04/19 14:17 97.9 F 98 19 131/87 98 Date Exam was Performed: 05/04/19 Time Exam was Performed: 15:19 - My Orders Last 24 Hours: My Active Orders 05/04/19 14:21 INFLUENZA A+B AG SCREEN [RM] Stat - Assessment/Plan Last 24 Hours: My Active Orders 05/04/19 14:21 INFLUENZA A+B AG SCREEN [RM] Stat
[2019-05-04] MEDS ORDERED: Penicillin G Benzathine 1,200,000 Units/2 ML Syringe IM ONE (15:14)
[2019-05-04 15:27] VITALS: BP 114/75
== END 2019-05-04 15:23 | disposition home or self-care (01) ==
LOC: JD.ED 14:07
DX: J02.0 Streptococcal pharyngitis (principal); Z87.891 Personal history of nicotine dependence; Z91.09 Other allergy status, other than to drugs and biological substances; Z88.6 Allergy status to analgesic agent; Z91.018 Allergy to other foods; Z88.5 Allergy status to narcotic agent
CPT/HCPCS: 87430; 87804; 96372; 99283; J0561; J1885

== ENCOUNTER 2020-10-19 18:46 | Emergency (ER) | payer SELFPAY ==
[2020-10-19 19:12] VITALS: BP 152/90; PULSE 110
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
--- NOTE | 2020-10-19 20:29 | CR ---
Left ankle: 4 views left ankle were obtained. Comparison: Prior left ankle study of 12/14/17. Ankle mortise is symmetric. No acute fracture, dislocation or other bony abnormality is appreciated. Impression: 1. Nothing acute is seen on left ankle exam. Diagnostic code #1
== END 2020-10-19 20:44 | disposition home or self-care (01) ==
LOC: JD.ED 18:46
DX: S93.402A Sprain of unspecified ligament of left ankle, initial encounter (principal); M19.90 Unspecified osteoarthritis, unspecified site; Z72.0 Tobacco use; Z88.6 Allergy status to analgesic agent; Z88.5 Allergy status to narcotic agent; Z91.018 Allergy to other foods; Z91.048 Other nonmedicinal substance allergy status; X58.XXXA Exposure to other specified factors, initial encounter
CPT/HCPCS: 73610-26-LT; 73610-LT; 99282; 99283-25

== ENCOUNTER 2020-12-07 13:15 | Emergency (ER) | payer SELFPAY ==
[2020-12-07 14:11] VITALS: BP 151/85; PULSE 99
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
== END 2020-12-07 15:35 | disposition home or self-care (01) ==
LOC: JD.ED 13:15
DX: U07.1 COVID-19 (principal); E66.9 Obesity, unspecified; Z68.32 Body mass index [BMI] 32.0-32.9, adult; Z72.0 Tobacco use; Z88.5 Allergy status to narcotic agent; Z91.018 Allergy to other foods; Z88.8 Allergy status to other drugs, medicaments and biological substances; Z91.09 Other allergy status, other than to drugs and biological substances
CPT/HCPCS: 99284; U0002

== ENCOUNTER 2022-01-05 21:25 | Emergency (ER) | payer SELFPAY ==
[2022-01-05 21:49] VITALS: BP 144/59; PULSE 96
[2022-01-05] MEDS ORDERED: Ondansetron 4 MG Tab.DIS PO ONE (21:55)
[2022-01-05] MEDS ORDERED: HYDROmorphone 1 MG/ML Syringe IM ONE (21:55)
== END 2022-01-05 22:46 | disposition home or self-care (01) ==
LOC: JD.ED 21:25
DX: T22.211A Burn of second degree of right forearm, initial encounter (principal); F17.210 Nicotine dependence, cigarettes, uncomplicated; Z91.018 Allergy to other foods; Z91.030 Bee allergy status; Z88.6 Allergy status to analgesic agent; Z88.5 Allergy status to narcotic agent; X19.XXXA Contact with other heat and hot substances, initial encounter; Y92.69 Other specified industrial and construction area as the place of occurrence of the external cause
CPT/HCPCS: 16020; 96372; 99283; A9270; J1170

== ENCOUNTER 2022-02-14 07:22 | Emergency (ER) | payer SELFPAY ==
[2022-02-14 07:32] VITALS: BP 144/114; PULSE 100
== END 2022-02-14 08:59 | disposition home or self-care (01) ==
LOC: JD.ED 07:22
DX: S50.02XA Contusion of left elbow, initial encounter (principal); E66.9 Obesity, unspecified; Z68.31 Body mass index [BMI] 31.0-31.9, adult; Z91.018 Allergy to other foods; Z88.5 Allergy status to narcotic agent; Z88.8 Allergy status to other drugs, medicaments and biological substances; Z91.038 Other insect allergy status; W00.0XXA Fall on same level due to ice and snow, initial encounter
CPT/HCPCS: 73080-26-LT; 73080-LT; 99283

== ENCOUNTER 2022-09-16 14:57 | Emergency (ER) | payer SELFPAY ==
[2022-09-16 15:28] VITALS: BP 137/76; PULSE 104
== END 2022-09-16 17:53 | disposition home or self-care (01) ==
LOC: JD.ED 14:57
DX: S90.02XA Contusion of left ankle, initial encounter (principal); E66.9 Obesity, unspecified; Z91.018 Allergy to other foods; Z88.6 Allergy status to analgesic agent; Z86.16 Personal history of COVID-19; Z88.5 Allergy status to narcotic agent; Z68.32 Body mass index [BMI] 32.0-32.9, adult; W19.XXXA Unspecified fall, initial encounter; Y92.002 Bathroom of unspecified non-institutional (private) residence as the place of occurrence of the external cause
CPT/HCPCS: 73610-26-LT; 73610-LT; 73630-26-LT; 73630-LT; 99283

== ENCOUNTER 2022-11-06 17:29 | Emergency (ER) | payer BC, MEDICAID | END 2022-11-06 18:35 | disposition left against medical advice (07) | LOC: JD.ED 17:29 | DX: Z53.21 Procedure and treatment not carried out due to patient leaving prior to being seen by health care provider (principal) ==

== ENCOUNTER 2022-11-06 20:39 | Emergency (ER) | payer BC ==
[2022-11-06] MEDS ORDERED: Ketorolac 60 MG/2 ML SDV IM ONE (21:12)
[2022-11-06] MEDS ORDERED: HYDROmorphone 1 MG/ML Syringe IM ONE (21:12)
[2022-11-06 22:40] VITALS: BP 157/89; PULSE 87
== END 2022-11-06 22:33 | disposition home or self-care (01) ==
LOC: JD.ED 20:39
DX: M25.512 Pain in left shoulder (principal); E66.9 Obesity, unspecified; M19.90 Unspecified osteoarthritis, unspecified site; Z86.16 Personal history of COVID-19; Z79.899 Other long term (current) drug therapy; Z88.5 Allergy status to narcotic agent; Z88.6 Allergy status to analgesic agent; Z91.018 Allergy to other foods; Z68.33 Body mass index [BMI] 33.0-33.9, adult
CPT/HCPCS: 73030; 96372; 99283; J1170; J1885

== ENCOUNTER 2022-11-15 19:52 | Emergency (ER) | payer BC ==
[2022-11-15] MEDS ORDERED: HYDROmorphone 1 MG/ML Syringe IM ONE (20:47)
[2022-11-15] MEDS ORDERED: Ketorolac 60 MG/2 ML SDV IM ONE (20:47)
[2022-11-15] MEDS ORDERED: Ondansetron 4 MG Tab.DIS PO ONE (20:47)
[2022-11-15 21:54] VITALS: BP 132/83; PULSE 95
== END 2022-11-15 21:50 | disposition home or self-care (01) ==
LOC: JD.ED 19:52
DX: M25.512 Pain in left shoulder (principal); R20.0 Anesthesia of skin; R20.2 Paresthesia of skin; E66.9 Obesity, unspecified; Z68.32 Body mass index [BMI] 32.0-32.9, adult; Z87.891 Personal history of nicotine dependence; Z91.018 Allergy to other foods; Z91.038 Other insect allergy status; Z88.8 Allergy status to other drugs, medicaments and biological substances; Z88.5 Allergy status to narcotic agent; Z79.899 Other long term (current) drug therapy
CPT/HCPCS: 96372; 99283; A9270; J1170; J1885

== ENCOUNTER 2022-12-29 17:59 | Emergency (ER) | payer BC ==
[2022-12-29 18:30] VITALS: BP 140/101; PULSE 118
[2022-12-29] MEDS ORDERED: Ondansetron 4 MG Tab.DIS PO ONE (19:11)
[2022-12-29] MEDS ORDERED: Ketorolac 60 MG/2 ML SDV IM ONE (19:11)
== END 2022-12-29 21:05 | disposition home or self-care (01) ==
LOC: JD.ED 17:59
DX: M25.512 Pain in left shoulder (principal); E66.9 Obesity, unspecified; Z68.33 Body mass index [BMI] 33.0-33.9, adult; Z86.16 Personal history of COVID-19; Z88.5 Allergy status to narcotic agent; Z91.018 Allergy to other foods; Z88.8 Allergy status to other drugs, medicaments and biological substances; Z91.038 Other insect allergy status
CPT/HCPCS: 96372; 99283; A9270; J1885

== ENCOUNTER 2023-04-23 09:50 | Emergency (ER) | payer SELFPAY ==
[2023-04-23 10:05] VITALS: BP 163/94; PULSE 107
[2023-04-23] MEDS: Ketorolac 60 MG/2 ML SDV IM ONE (11:56)
== END 2023-04-23 11:57 | disposition left against medical advice (07) ==
LOC: JD.ED 09:50
DX: M54.50 Low back pain, unspecified (principal); E66.9 Obesity, unspecified; Z68.32 Body mass index [BMI] 32.0-32.9, adult; Z86.16 Personal history of COVID-19; Z88.8 Allergy status to other drugs, medicaments and biological substances; Z91.018 Allergy to other foods; Z91.048 Other nonmedicinal substance allergy status
CPT/HCPCS: 99283

== ENCOUNTER 2024-03-14 17:59 | Emergency (ER) | payer OTHER ==
[2024-03-14 19:09] LABS: BASOPHILS ABSOLUTE AUTO 0.1 K/mm3 (0.0-0.2); BASOPHILS PERCENT AUTO 0.5 % (0.0-1.0); EOSINOPHILS ABSOLUTE AUTO 0.4 K/mm3 (0.0-0.4); EOSINOPHILS PERCENT AUTO 3.9 % (0.0-6.0); HEMOGLOBIN 12.7 gm/dl (12.0-16.0); IMMATURE GRAN ABSOLUTE AUTO 0.04 K/mm3 (0.00-0.05); IMMATURE GRAN PERCENT AUTO 0.4 % (0.0-0.4); LYMPHOCYTES ABSOLUTE AUTO 3.4 K/mm3 (1.0-4.8); LYMPHOCYTES PERCENT AUTO 34.5 % (24.0-44.0); MEAN CORPUSCULAR HGB CONC 31.8 g/dl (32.0-36.0); MEAN CORPUSCULAR VOLUME 88.1 fl (83.0-99.0); MEAN PLATELET VOLUME 8.9 fl (9.4-12.3); MONOCYTES ABSOLUTE AUTO 0.5 K/mm3 (0.0-0.8); MONOCYTES PERCENT AUTO 5.4 % (0.0-8.0); NEUTROPHILS ABSOLUTE AUTO 5.4 K/mm3 (1.8-7.7); NEUTROPHILS PERCENT AUTO 55.3 % (41.0-71.0); PLATELET COUNT,PLT 407 K/mm3 (150-400); RED BLOOD CELL COUNT 4.54 M/mm3 (4.10-5.30); WHITE BLOOD CELL COUNT,WBC 9.83 K/mm3 (3.9-11.3)
[2024-03-14] MEDS: Ketorolac 30 MG/ML SDV IVPUSH ONE (19:38)
[2024-03-14] MEDS: Sodium Chloride 0.9% 1,000 ML IV SCH (19:38)
[2024-03-14 19:41] LABS: A/G RATIO 0.8 (1-2); ALANINE AMINOTRANSFERASE,ALT 25 U/L (14-59); ALBUMIN 3.2 g/dl (3.4-5.0); ALKALINE PHOSPHATASE 99 U/L (46-116); ASPARTATE AMNIOTRANSFERASE,AST 15 U/L (15-37); BILIRUBIN TOTAL 0.2 mg/dL (0.2-1.0); BLOOD UREA NITROGEN,BUN 13 mg/dL (7-18); BUN/CREATININE RATIO 16.3 (14-18); C-REACTIVE PROTEIN 0.19 mg/dL (<0.30); CALCIUM 8.7 mg/dL (8.5-10.1); CARBON DIOXIDE,CO2 28 mEq/L (21-32); CHLORIDE,CL 104 mEq/L (98-107); CREATININE 0.8 mg/dL (0.55-1.02); EST CRCL DRUG DOSING (CG) 66.31 mL/min; ESTIMATED GFR 92 mL/min (>60); GLUCOSE RANDOM 88 mg/dL (70-99); SODIUM,NA 141 mEq/L (136-145); TSH 1.402 uIU/mL (0.358-3.74)
[2024-03-14 19:43] LABS: TROPONIN I HIGH SENSITIVITY < 4 pg/mL (<=51)
[2024-03-14] MEDS: hydrOXYzine HCl 25 MG Tab PO ONE (20:13)
[2024-03-14 21:16] VITALS: BP 137/75; PULSE 91
== END 2024-03-14 21:13 | disposition home or self-care (01) ==
LOC: JD.ED 17:59
DX: F41.9 Anxiety disorder, unspecified (principal); R42 Dizziness and giddiness; R51.9 Headache, unspecified; E66.9 Obesity, unspecified; Z68.35 Body mass index [BMI] 35.0-35.9, adult; Z88.8 Allergy status to other drugs, medicaments and biological substances; Z91.018 Allergy to other foods; Z91.048 Other nonmedicinal substance allergy status; Z86.16 Personal history of COVID-19; Z90.710 Acquired absence of both cervix and uterus
CPT/HCPCS: 36415; 70450; 71045; 80053; 84443; 84484; 85025; 86140; 87428; 93005; 96361; 96374; 99284; A9270; J1885; J7030; 93010